=== PATIENT | male | born 1965 | race Caucasian/White ===

== ENCOUNTER → 2017-07-03 14:11 | Outpatient (CLI) | payer OTHER, SELFPAY ==
--- NOTE | 2017-07-03 14:18 | CA_ITS ---
PROCEDURE: 2-D M-mode and color Doppler study INDICATIONS FOR THE TEST: Chest pain COPD Heart Murmur Tobacco Smoking Palpitations Fatigue Syncope Edema Hypertension+Diabetes Mellitus Rheumatic Fever SOB SUAREZ Obesity Hyperlipidemia+ Family History HD Additional History PATIENT INFORMATION HEIGHT: 70 WEIGHT: 255 GENDER: Male B/P: 137/66 2-D/M-MODE INTERPRETATION: 2-D MEASUREMENTS OBSERVED VALUES IN CMS Right Ventricular Dimension (RVDd) 2.3 Interventricular Septum (Thickness)(IVsd) 1.1 Left Ventricular Internal Dimensions(LVIDd) 5.2 Left Ventricular Posterior Wall (Thickness)(LVPWd) 1.1 Aortic Root 3.0 Aortic Cusp Separation 2.3 Left Atrial Dimensions (LAD) 4.2 2D 1. Left atrium is mildly enlarged, left ventricle is normal size, mild concentric left ventricular hypertrophy, visually estimated ejection fraction 55% with no obvious regional wall motion abnormality. 2. The right atrium and right ventricle are normal size and contractility. 3. The aortic valve is minimally thickened and fibrosed. 4. The mitral and tricuspid valve leaflets are minimally thickened. 5. The pulmonic valve is poorly visualized. 6. No significant pericardial effusion noted. DOPPLER INTERROGATION: Doppler interrogation of the aortic, mitral and tricuspid valvular presence of mild mitral and tricuspid regurgitation, tricuspid and jet velocity insufficient for calculation of the right ventricular systolic pressure, grade 1 diastolic dysfunction seen without tissue Doppler evidence of raised left atrial pressure. CONCLUSION: 1. Mildly enlarged left atrium, normal left ventricular size, mild concentric left ventricular hypertrophy, visually estimated ejection fraction 55% with no obvious regional wall motion abnormality, grade 1 diastolic dysfunction seen without tissue Doppler evidence of raised left atrial pressure. 2. Mild mitral and tricuspid regurgitation 3. No significant pericardial effusion noted.
--- NOTE | 2017-07-03 14:18 | CI_ITS ---
Cerebrovascular Exam Indications: 785.9 Bruit. IMPRESSIONS 1. The bilateral internal carotid arteries reveal no evidence of plaque or stenosis. 2. The bilateral common and external carotid arteries reveal no significant stenosis. 3. The bilateral vertebral arteries are patent with normal antegrade flow. History: Risk factors: Hypertension. Carotid duplex study. Complete study and Doppler flow study including spectral analysis, color and baugh scale imaging. Height: Height: 177.8cm. Height: 70in. Weight: Weight: 115.7kg. Weight: 254.5lb. Body mass index: BMI: 36.6kg/m^2. Body surface area: BSA: 2.43m^2. Location: Vascular laboratory. Patient status: Outpatient. Tables: Arterial flow: + +--------+--------+ Location V sys V ed + +--------+--------+ Right CCA - proximal 92.7cm/s 14.1cm/s + +--------+--------+ Right CCA - distal 52.6cm/s 13.4cm/s + +--------+--------+ Right ECA 115cm/s -------- + +--------+--------+ Right ICA - proximal 47.9cm/s 19.6cm/s + +--------+--------+ Right ICA - mid 54.2cm/s 18.9cm/s + +--------+--------+ Right ICA - distal 50.3cm/s 23.6cm/s + +--------+--------+ Right vertebral 36.9cm/s -------- + +--------+--------+ Left CCA - proximal 90.4cm/s 18.1cm/s + +--------+--------+ Left CCA - distal 75.4cm/s 26.7cm/s + +--------+--------+ Left ECA 130cm/s -------- + +--------+--------+ Left ICA - proximal 52.6cm/s 16.5cm/s + +--------+--------+ Left ICA - mid 67.6cm/s 29.9cm/s + +--------+--------+ Left ICA - distal 71.5cm/s 30.6cm/s + +--------+--------+ Left vertebral 27.5cm/s -------- + +--------+--------+ Velocity ratios: + + + + + + Right, V sys Right, V ed Left, V sys Left, V ed + + + + + + Max ICA/dist CCA 1.03 1.76 0.95 1.15 + + + + + + (Report amended ) Electronically signed by: Pito Ramos [id number]
== END ==
PROVIDERS: PCP Family Medicine; Visit Provider Family Medicine
DX: I49.8 Other specified cardiac arrhythmias (principal); R09.89 Other specified symptoms and signs involving the circulatory and respiratory systems
CPT/HCPCS: 93306; 93880

== ENCOUNTER → 2017-07-18 08:33 | Outpatient (CLI) | payer OTHER, SELFPAY ==
[2017-07-18 09:05] LABS: Hemoglobin A1C 5.9 % (0.0-7.0)
[2017-07-18 10:35] LABS: Chol/HDL Ratio 4.9 (1-3.5); Cholesterol 157 mg/dL (140-200); HDL Cholesterol 32 mg/dL (27-67); LDL Cholesterol 99 mg/dL (0-130); Triglycerides 128 mg/dL (30-200); VLDL Cholesterol 26 mg/dL (0-40)
== END ==
PROVIDERS: Visit Provider Family Medicine
DX: E11.9 Type 2 diabetes mellitus without complications (principal); E78.2 Mixed hyperlipidemia
CPT/HCPCS: 36415; 80061; 83036

== ENCOUNTER → 2018-10-21 11:20 | Outpatient (CLI) | payer OTHER, SELFPAY ==
--- NOTE | 2018-10-21 11:29 | XR_ITS ---
EXAM: XR lumbar spine min 4V HISTORY: ITS.REASON: BACK STRAIN low-back pain ORDERING PHYSICIAN: NONA Davies PATIENT AGE: 53 years COMPARISON: 01/11/2008 FINDINGS: Multilevel degenerative disc disease is present from T12 S1. There is chronic wedging of L1. Endplate osteophytes are noted at multiple levels. The degenerative disc disease is worse at L3-L4 and L5-S1 compared to the remaining levels and has progressed when compared to the previous exam. Bilateral pars defect is present at L5 with mild spondylolisthesis of L5 of 5 mm. Facet arthritic changes are present at L4-L5 and S1. There is generalized vascular calcification. IMPRESSION: Multilevel degenerative disc disease with facet arthritic changes. The findings are slightly worse than when compared to the previous study Chronic wedging of L1 unchanged
== END ==
PROVIDERS: PCP Physician Assistant; Visit Provider Physician Assistant
DX: S39.012A Strain of muscle, fascia and tendon of lower back, initial encounter (principal)
CPT/HCPCS: 72110

== ENCOUNTER → 2018-10-27 14:12 | Outpatient (CLI) | payer OTHER, SELFPAY ==
--- NOTE | 2018-10-27 14:14 | MR_ITS ---
MR lumbar spine wo con, MR 3-d myelogram/MRCP HISTORY: Low back pain, LT sciatica pain when reaching or twisting. Shooting pain down back of leg. Symptoms [id number]. ITS.REASON: BACK STRAIN ORDERING PHYSICIAN: NONA Davies PATIENT AGE: 53 years Comparison: 10/21/2018 TECHNIQUE: Standard multiplanar multiecho sequences are performed without contrast. 3-D MIP and myelographic images are also rendered and reviewed FINDINGS: Normal alignment. The spinal cord ends at the T12-L1 level. There is straightening of the lumbar lordosis which could be due to patient positioning or muscle spasm. T11-T12: Mild degenerative disc disease. T12-L1: Degenerative disc disease. There is mild loss of height anteriorly of L1 which appears chronic. L1-L2: Unremarkable. L2-L3: Degenerative disc disease with mild bulging disc along with facet and ligamentum flavum hypertrophy. This is causing mild left lateral recess and foraminal narrowing and minimal right foraminal narrowing. L3-L4: Degenerative disc disease with bulging disc along with facet and ligamentum flavum hypertrophy with bilateral lateral recess narrowing and mild to moderate bilateral foraminal narrowing slightly greater on the right compared to the left. Type II endplate changes. There is transverse narrowing of the canal at this level at 10 mm. There is a Schmorl's node along the inferior endplate of L3 L4-L5: Mild concentric bulging disc with facet and ligamentum hypertrophy with mild bilateral lateral recess and foraminal narrowing. A Schmorl's node is present along the superior endplate of L5. L5-S1: Degenerative disc disease with 5 mm anterolisthesis of L5 with bulging disc with facet and ligamentum flavum hypertrophic change. There is moderate to severe bilateral foraminal narrowing greater on the right compared to the left. Disc herniation is evident. No acute fracture. IMPRESSION: 1. There is multilevel lumbar spondylosis with degenerative disc disease along with facet and ligamentum hypertrophy with lateral recess and foraminal narrowing and bulging discs. PLEASE SEE ABOVE FOR DETAILED DESCRIPTION AT EACH LEVEL. 2. Transverse narrowing of the canal at L3-L4. 3. No disc herniation or acute fracture
== END ==
PROVIDERS: PCP Physician Assistant; Visit Provider Physician Assistant
DX: S39.012A Strain of muscle, fascia and tendon of lower back, initial encounter (principal)
CPT/HCPCS: 72148; 76376

== ENCOUNTER → 2019-09-10 08:18 | Outpatient (CLI) | payer BC, SELFPAY ==
--- NOTE | 2019-09-10 08:29 | XR_ITS ---
PROCEDURE: XR ANKLE LT MIN 3V CLINICAL INDICATION: PAIN Foot and ankle pain COMPARISON: XR FOOT LT MIN 3V from 09/10/2019 FINDINGS: Minimal hypertrophic changes are present at the tip of the lateral malleolus. The ankle joint space is well preserved. There is minimal spurring of the distal tibia. The talar dome has an unremarkable appearance and the ankle mortise is preserved. There is a prominent posterior talar process/os trigonum which may result in impingement symptomatology. There is mild sclerosis of the subtalar joint and minimal hypertrophic change of the talonavicular joint. Minimal osteoarthritic change also noted at the 1st metatarsophalangeal joint. No acute fracture or dislocation. Degenerative changes also noted at the calcaneocuboid joint IMPRESSION: 1. Degenerative changes as detailed above. 2. Prominent posterior talar process which could result in impingement symptomatology. 3. No acute fracture Dictated by: Pito Ramos MD 09/10/2019 09:05 Electronically signed by Pito Ramos MD in [place] 09/10/2019 09:05
[2019-09-10 10:28] LABS: Chloride 105 mmol/L (98-107); Potassium 4.3 mmoL/L (3.5-5.1); Sodium 136 mmol/L (136-145)
[2019-09-10 10:30] LABS: Blood Urea Nitrogen 13 mg/dl (9-20); Estimated Glomerular Filt Rate 100 ml/min (>60); GFR (African American) 121 ML/MIN (>60)
[2019-09-10 10:31] LABS: Alanine Aminotransferase 38 U/L (12-78); Albumin Level 3.5 g/dl (3.5-5.0); Albumin/Globulin Ratio 1.4 (1.1-1.8); Alkaline Phosphatase 86 U/L (38-126); Anion Gap 7.3 mEq/L (5-15); Aspartate Amino Transferase 26 U/L (17-59); Bilirubin,Total 0.6 mg/dl (0.2-1.3); Carbon Dioxide 28 mmol/L (22.0-30.0); Cholesterol 142 mg/dl (140-200); Globulin 2.5 g/dL (1.3-3.2); Triglycerides 114 mg/dl (30-150); VLDL Cholesterol 23 mg/dL (0-40)
[2019-09-10 10:32] LABS: Calcium 9.4 mg/dl (8.4-10.2); Chol/HDL Ratio 3.7 (1-3.5); Glucose 135 mg/dl (74-100); HDL Cholesterol 38 mg/dl (40-60)
[2019-09-10 10:42] LABS: Direct LDL Cholesterol 111.92 mg/dL (100-129)
[2019-09-10 11:02] LABS: Prostate Specific Ag Screen 1.6 ng/ml (0.0-4.0)
[2019-09-10 12:20] LABS: Hemoglobin A1C 6.2 % (4.0-6.0)
== END ==
PROVIDERS: Visit Provider Physician Assistant
DX: E11.9 Type 2 diabetes mellitus without complications (principal); N40.0 Benign prostatic hyperplasia without lower urinary tract symptoms; I10 Essential (primary) hypertension; E78.5 Hyperlipidemia, unspecified
CPT/HCPCS: 36415; 73610; 73630; 80053; 80061; 83036; G0103

== ENCOUNTER 2019-11-14 17:30 | Outpatient (RCR) | payer BC, SELFPAY ==
--- NOTE | 2019-10-31 16:27 | HMH.PTOPEV ---
PT Outpatient Evaluation Rehab PT Outpatient Evaluation Start: 10/31/19 16:00 Freq: Status: Active Protocol: Document 10/31/19 16:01 GABRIELADEWAYNE (Rec: 10/31/19 16:27 HARISHLUCIO [id number]) Electronically Signed By Isac Flores PT 10/31/19 16:01 Outpatient Therapy Subjective History Subjective History This is the initial Physical Therapy evaluation for Andrez Bailey. Pt reports L ankle foot pain began ~ in June w/ an insidious onset. Pt reports pain was minimal but unrelenting. Pt states August/September pain began to increase to point of affecting gait and ambulation. Pt reports this caused LBP and BLE pain. Pt states he had steroid injection which has significantly decreased pain. Chief Complaint Pain Symptom Type Ache,Throb,Dull Symptoms Relieved By Prescription Meds Prior Functional Limitations None Current Functional Limitations Recreation Activity,Walking, Stairs Symptom Description Intermittent Level of pain today (0-10) 1 Pain scale - at its best (0-10) 0 Pain scale - at its worst (0-10) 8 Ankle/Foot Eval Gait Observation General Gait Pattern Observation No Deviations/Normal Assistive Device Ambulation Assistive Device None Palpation Tenderness left Ankle/Foot Palpation Findings Tenderness Ankle/Foot Palpation Overall Comment Tender along post tib tendon ROM Ankle/Foot Dorsiflexion w/Knee Extended 0 Active Range Motion (degrees) Ankle/Foot Plantar Flexion Active Range 60 of Motion (degrees) Ankle/Foot Eversion Active Range of 14 Motion (degrees) Ankle/Foot Inversion Active Range of 30 Motion (degrees) Special Tests Ankle Anterior Drawer Test Negative Left Ankle Eversion Test Positive Left Ankle Inversion (supination) Test Negative Left Outpatient Therapy Assessment Impairments Problems/Impairmments Palpation Tenderness,Impaired Range of Motion,Impaired Walking,Impaired Standing, Impaired Driving,Impaired Stair Climbing,Impaired Incline Stepping,Impaired Recreational Activities, Impaired Work Activities, Subjective C/O Pain,Impaired Self Care/Self Managem
== END 2019-11-14 18:24 | disposition home or self-care (01) ==
LOC: PT 17:30
PROVIDERS: PCP Physician Assistant; Visit Provider Podiatrist
DX: M25.872 Other specified joint disorders, left ankle and foot; M76.62 Achilles tendinitis, left leg
CPT/HCPCS: 97010; 97035; 97110; 97163

== ENCOUNTER → 2020-06-12 18:58 | Outpatient (CLI) | payer BC, SELFPAY ==
[2020-06-12 19:47] LABS: Microscopic, Urine URINE MICROSCOPIC (MICROSCOPIC)
[2020-06-12 20:03] LABS: Appearance,Urine CLEAR (Clear); Bilirubin,Urine Negative (Negative); Blood, Urine Negative (Negative); Color,Urine YELLOW (Yellow); Glucose,Urine (UA) Negative (Negative); Ketones,Urine Negative (Negative); Leukocyte Esterase,Urine Negative (Negative); Nitrate,Urine Negative (Negative); Protein,Urine Negative (Negative); Specific Gravity, Urine >= 1.030 (1.005-1.030); Urobilinogen,Urine 0.2 EU/dl (0.2)
[2020-06-12 20:58] LABS: Bacteria,Urine 1+ /lpf; WBC,Urine Occasional #/hpf (0-3)
== END ==
PROVIDERS: PCP Physician Assistant; Visit Provider Family Medicine
DX: N39.0 Urinary tract infection, site not specified (principal)
CPT/HCPCS: 81001; 87086; 87186

== ENCOUNTER 2020-08-10 09:09 | Emergency (ER) | payer BC, SELFPAY ==
[2020-08-10 09:27] VITALS: BP 141/78; PULSE 67; RESP 14; TEMP 37.1; O2SAT 97; BMI 35.5
--- NOTE | 2020-08-10 10:11 | HMH.EDUTC ---
[facility] [place] Disposition Clinical Impression: Corneal abrasion Qualifiers: Encounter type: initial encounter Laterality: left Qualified Code(s): S05.02XA - Injury of conjunctiva and corneal abrasion without foreign body, left eye, initial encounter Disposition: Home, Self-Care Condition on Discharge: Good Instructions: DI for Corneal Abrasion, Corneal Abrasion Additional Instructions: Use the eye drops as directed. Follow up with your primary care doctor. If you continue to have symptoms, please follow up with Dr. Neely. GO TO THE ER FOR ANY WORSENING SYMPTOMS OR CONCERNS Prescriptions: Ofloxacin [Ocuflox 0.3% OPHTH drops 5mL] 1 drp EYE-LEFT Q2H 7 Days #1 bottle Transmission Status: Received by [id number] Referrals: Deepa Soto MD [Primary Care Provider] - Time of Disposition: 10:17 Medical Decision Making - Medical Records Medical records reviewed: No: I reviewed the patient's medical records. - Mitchel Inquiry Pt receiving controlled substance: No Vital Signs: 08/10/20 09:27 08/10/20 10:32 Temperature 98.7 F 98.6 F Temperature Source Oral Pulse Rate 67 Pulse Rate [Right] 67 Respiratory Rate 14 16 Blood Pressure 132/75 Blood Pressure [Right Arm] 141/78 H Blood Pressure Mean [Right Arm] 99 02 Sat by Pulse Oximetry 97 Orders (Tests/Meds): ED MEDICATIONS Discontinued Medications Generic Name Dose Route Start Last Admin Trade Name Freq PRN Reason Stop Dose Admin Tetracaine HCl 0.5 ml 08/10/20 10:28 08/10/20 10:31 Tetracaine 0.5% Opth Melissa 15ml OP 08/10/20 10:29 2 drops ONCE ONE Administration [facility] [place] HPI - General Stated complaint: foreign object in LT eye Time Seen by Provider: 08/10/20 09:30 Mode of Arrival: Ambulatory Source of Information: Patient Limitations: No Limitations Description of Symptoms (Recalled from Triage Doc. by RN): pt woke up thu morning and noticed he had something in his L eye. he thinks its a piece of rust of dirt is in it. its not painful he can just feel something in there. HEENT Symptoms (Recalled from RN notes): Yes (pt feels like there is something in his L eye) Resp Symptoms (Recalled from RN notes): No Skin Symptoms (Recalled from RN notes): No MS Symptoms (Recalled from RN notes): No Functional Status (Recalled from RN notes): na - History of Present Illness Provider Complaint: He states that for the past 2 days he has had a foreign body sensation in his left eye. 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 He thinks that he has something in the eye. He denies any injury. He states that his vision is normal in the eye, but it is watering more than usual . - Related Data Home Medications Medication Instructions Recorded Confirmed indomethacin 50 mg capsule 50 mg PO BID 06/08/18 10/17/19 lisinopril 10 1 tab PO tab 09/22/19 10/17/19 mg-hydrochlorothiazide 12.5 mg tablet rosuvastatin 20 mg tablet 20 mg PO tab 09/22/19 10/17/19 Previous Rx's Medication Instructions Recorded meloxicam 7.5 mg tablet 7.5 mg PO DAILY #30 tab 09/22/19 Ofloxacin [Ocuflox 0.3% OPHTH 1 drp EYE-LEFT Q2H 7 Days #1 bottle 08/10/20 drops 5mL] Allergies Allergy/AdvReac Type Severity Reaction Status Date / Time Sulfa (Sulfonamide Allergy Verified 08/10/20 09:32 Antibiotics) From Promethazine HCl Allergy Unknown Uncoded 06/08/18 11:33 - Worker's Comp Is this a Worker's Comp case?: No [facility] History - Hepatitis A Screen Drug use history?: No High risk sexual behaviors?: No History of sexually transmitted infection?: No Currently employed?: No Childcare worker?: No Do you have indoor plumbing?: Yes Do you have electricity?: Yes Attestation statement:: This patient has been screened for Hepatitis A risk factors. I have reviewed the patient's past medical history: Yes Medical History: Reports:: Hyperlipidemia, Hypertension Other Medical History: Reports: Arthritis Other S
[2020-08-10 10:32] VITALS: BP 132/75; PULSE 67; RESP 16; TEMP 37
== END 2020-08-10 10:32 | disposition home or self-care (01) ==
PROVIDERS: Emergency Provider Nurse Practitioner Family; PCP Family Medicine
DX: S05.02XA Injury of conjunctiva and corneal abrasion without foreign body, left eye, initial encounter (principal); W22.8XXA Striking against or struck by other objects, initial encounter; Y92.79 Other farm location as the place of occurrence of the external cause; I10 Essential (primary) hypertension; E78.5 Hyperlipidemia, unspecified
CPT/HCPCS: 99202; G0463

== ENCOUNTER → 2021-04-10 19:46 | Outpatient (CLI) | payer OTHER, SELFPAY | PROVIDERS: Visit Provider Nurse Practitioner Family | DX: U07.1 COVID-19 (principal) | CPT/HCPCS: C9803; U0003; U0005 ==

== ENCOUNTER 2021-11-10 17:48 | Emergency (ER) | payer BC, SELFPAY ==
--- NOTE | 2021-11-10 18:07 | HMH.EDUTC ---
[facility] [place] Disposition Clinical Impression: Vertigo Otitis media Qualifiers: Otitis media type: suppurative Chronicity: acute Laterality: bilateral Recurrence: non-recurrent Spontaneous tympanic membrane rupture: without spontaneous rupture Qualified Code(s): H66.003 - Acute suppurative otitis media without spontaneous rupture of ear drum, bilateral Disposition: Home, Self-Care Condition on Discharge: Good Instructions: Middle Ear Infection Additional Instructions: Drink plenty of fluids. Take tylenol or ibuprofen for pain or fever. Take the medications as directed. Follow up with your regular doctor. GO TO THE ER FOR ANY WORSENING SYMPTOMS Quarantine until you know the results of your covid-19 test. Notify your school or workplace of your results and follow their instructions regarding return to work/school. Don't start the oral steroids until tomorrow, since you had the shot here today. Prescriptions: Amoxicillin/Potassium Clav [Amox-Clav 875-125 mg Tablet] 1 tab PO BID #20 tab Transmission Status: Received by [place] [id number] methylPREDNISolone [Medrol] 4 mg PO DIRECTED 6 Days #21 packet Transmission Status: Received by [place] [id number] Referrals: Deepa Soto MD [Primary Care Provider] - Forms: Work/School Release Time of Disposition: 18:54 Medical Decision Making - Medical Records Medical records reviewed: No: I reviewed the patient's medical records. - Mitchel Inquiry Pt receiving controlled substance: No Vital Signs: 11/10/21 18:12 Temperature 98.9 F Temperature Source Oral Pulse Rate [Left] 60 Respiratory Rate 16 Blood Pressure [Right Arm] 136/88 Blood Pressure Mean [Right Arm] 104 02 Sat by Pulse Oximetry 98 Orders (Tests/Meds): ED MEDICATIONS Discontinued Medications Generic Name Dose Route Start Last Admin Trade Name Freq PRN Reason Stop Dose Admin Ceftriaxone Sodium 1 gm 11/10/21 18:49 11/10/21 19:01 Ceftriaxone 1gm Vial IM 11/10/21 18:50 1 gm ONCE ONE Administration Lidocaine HCl 0 ml 11/10/21 18:49 11/10/21 19:02 Lidocaine 1% 5ml Pf Vial IM 11/10/21 18:50 2 ml ONCE ONE Administration Methylprednisolone Sodium Succinate 125 mg 11/10/21 18:49 11/10/21 19:02 Methylprednisolone Sod Succ 125mg Vial IM 11/10/21 18:50 125 mg ONCE ONE Administration ORDERS Category Date Time Status Covid-19 Nasal PCR ([facility]) Routine Lab 11/10/21 18:02 Received [facility] [place] HPI - General Stated complaint: congestion, DOSS and ear ache and dizzy Time Seen by Provider: 11/10/21 18:07 - History of Present Illness Provider Complaint: He has had bilateral ear pain for the past week. He started having dizziness with certain turns of his head today. - Related Data Home Medications Medication Instructions Recorded Confirmed indomethacin 50 mg capsule 50 mg PO BID 06/08/18 04/10/21 lisinopril 10 1 tab PO tab 09/22/19 04/10/21 mg-hydrochlorothiazide 12.5 mg tablet rosuvastatin 20 mg tablet 20 mg PO tab 09/22/19 04/10/21 Previous Rx's Medication Instructions Recorded amoxicillin 500 mg capsule 500 mg PO Q12H 10 Days #20 cap 04/10/21 Amoxicillin/Potassium Clav 1 tab PO BID #20 tab 11/10/21 [Amox-Clav 875-125 mg Tablet] methylPREDNISolone [Medrol] 4 mg PO DIRECTED 6 Days #21 11/10/21 packet Allergies Allergy/AdvReac Type Severity Reaction Status Date / Time Sulfa (Sulfonamide Allergy Verified 11/10/21 18:16 Antibiotics) From Promethazine HCl Allergy Unknown Uncoded 04/10/21 12:22 [facility] History - Hepatitis A Screen Attestation statement:: This patient has been screened for Hepatitis A risk factors. I have reviewed the patient's past medical history: Yes Medical History: Reports:: Hyperlipidemia, Hypertension Other Medical History: Reports: Arthritis Other Surgeries: Yes: No Previous Surgery, Colonoscopy Amputation: No Fractures: No - Social History Smoking Status: Ne
[2021-11-10 18:12] VITALS: BP 136/88; PULSE 60; RESP 16; TEMP 37.2; O2SAT 98; BMI 34.8
[2021-11-10 19:11] VITALS: BP 136/88; PULSE 60; RESP 16; TEMP 37.2
== END 2021-11-10 19:11 | disposition home or self-care (01) ==
PROVIDERS: Emergency Provider Nurse Practitioner Family; PCP Family Medicine
DX: H66.003 Acute suppurative otitis media without spontaneous rupture of ear drum, bilateral
CPT/HCPCS: 96372; 99212; C9803; G0463; J0696; U0003; U0005

== ENCOUNTER 2024-02-13 11:39 | Emergency (ER) | payer BC, SELFPAY ==
[2024-02-13 13:25] VITALS: BP 136/72; PULSE 71; RESP 20; TEMP 37.1; O2SAT 98; BMI 35.2
--- NOTE | 2024-02-13 14:36 | EXP.UTC ---
Discharge Plan Disposition Patient Disposition: Home, Self-Care Condition: Good Prescriptions Prescriptions: New benzonatate 100 mg capsule 100 mg PO TID PRN (Reason: cough) Qty: 30 0RF triamcinolone acetonide 0.5 % cream 1 applic topical TID Qty: 30 0RF No Action indomethacin 50 mg capsule 50 mg PO BID lisinopril-hydrochlorothiazide 10-12.5 mg tablet 1 tab PO Patient Comments: TAKE 1 TABLET BY MOUTH ONCE DAILY rosuvastatin 20 mg tablet 20 mg PO Patient Comments: TAKE 1 TABLET BY MOUTH ONCE DAILY AT BEDTIME amoxicillin 500 mg capsule 500 mg PO Q12H 10 Days Qty: 20 0RF methylprednisolone 4 MG tablets,dose pack 4 mg PO DIRECTED 6 Days Qty: 21 0RF amoxicillin-pot clavulanate 1 EACH tablet 1 tab PO BID Qty: 20 0RF Referrals Follow up/Referrals: Deepa Soto MD [Primary Care Provider] - See instructions Activity Restrictions/Add. Instructions Additional Instructions/Restrictions: Take/use medication as prescribed. If symptoms persist or worsen, return to clinic/pcp. If you become short of air, return to ER. Clinical Impressions Clinical Impression: Contact dermatitis and eczema due to plant Upper respiratory tract infection Qualifiers: URI type: unspecified viral URI Qualified Code(s): J06.9 - Acute upper respiratory infection, unspecified Instructions Patient Instructions: DI for Viral Upper Respiratory Infection -- Adult, DI for Poison Bess Allergy, Poisonous Plants: [place], [place], and [place]: Beware the Oils Print Language Print Language: Hungarian Discharge ED Provider: Leydi Kapoor [facility] [place] HPI General Stated complaint: cough, chest congestion, poison bess rash Mode of Arrival: Ambulatory Source of Information: Patient Time Seen by Provider: 02/13/24 14:09 Description of Symptoms (Recalled from Triage Doc. by RN): POSION BESS SPREADING EVEN AFTER STEROID PK AND SINUS PRESSURE ISSUES HEENT Symptoms (Recalled from RN notes): No Resp Symptoms (Recalled from RN notes): Yes Skin Symptoms (Recalled from RN notes): Yes MS Symptoms (Recalled from RN notes): No Functional Status (Recalled from RN notes): WNL Related Data Home Medications ?Medication ?Instructions ?Recorded ?Confirmed indomethacin 50 mg capsule 50 mg PO BID 06/08/18 04/10/21 lisinopril 10 1 tab PO 09/22/19 04/10/21 mg-hydrochlorothiazide 12.5 mg tablet rosuvastatin 20 mg tablet 20 mg PO 09/22/19 04/10/21 Previous Rx's ?Medication ?Instructions ?Recorded amoxicillin 500 mg capsule 500 mg PO Q12H sinusitis 10 days 04/10/21 #20 caps amoxicillin 875 mg-potassium 1 tab PO BID #20 tabs 11/10/21 clavulanate 125 mg tablet methylprednisolone 4 mg tablets in 4 mg PO DIRECTED 6 days #21 11/10/21 a dose pack packets benzonatate 100 mg capsule 100 mg PO TID PRN cough #30 caps 02/13/24 triamcinolone acetonide 0.5 % 1 applic topical TID #30 grams 02/13/24 topical cream Allergies Allergy/AdvReac Type Severity Reaction Status Date / Time Sulfa (Sulfonamide Allergy Verified 11/10/21 18:16 Antibiotics) From Promethazine HCl Allergy Unknown Uncoded 04/10/21 12:22 Worker's Comp Is this a Worker's Comp case?: No [facility] Disclaimer: The information contained in this section may have been updated after the patient was seen, as this information can be updated by other users. Social History Smoking Status: Never smoker alcohol intake: never substance use type: denies use current occupational status: employed Travel in the last 8 weeks: None household members: family housing: house ROS Obtained: Yes All systems reviewed & no additional complaints except as documented Constitutional Constitutional: Reports fever(s), Reports headache(s), Reports malaise and Reports night sweats Eyes Eyes: Reports system reviewed and no additional complaints, except as documented ENT Ears, Nose, Mouth, and Throat: Reports system reviewed and no additional complaints, except as documented, Reports headache(s), Reports nasal congestion and Reports nasal discharge Cardiovascular Cardiovascular: Reports system reviewed and no additional complaints, except as documented Respiratory Respiratory: Reports system reviewed and no additional complaints, except as documented and Reports non-productive cough Gastrointestinal Gastrointestingal: Reports system reviewed and no additional complaints, except as documented Genitourinary Male Genitourinary: Reports system reviewed and no additional complaints, except as documented Musculoskeletal Musculoskeletal: Reports system reviewed and no additional complaints, except as documented Integumentary/Breasts Skin/Breast: Reports system reviewed and no additional complaints, except as documented Neurologic Neurologic: Reports system reviewed and no additional complaints, except as documented and Reports headache(s) Endocrine Endocrine: Reports system reviewed and no additional complaints, except as documented Hematologic/Lymphatic Henatologic/Lymphatic: Reports system reviewed and no additional complaints, except as documented Allergic/Immunologic Allergic/Immunologic: Reports system reviewed and no additional complaints, except as documented Physical Exam General General appearance: alert and in no apparent distress Head Head exam: atraumatic and normocephalic Eye Eye exam: Present normal appearance ENT ENT exam: Present mucous membranes moist Expanded ENT Exam External ear exam: Present normal external inspection Nasal speculum exam: Bilateral: other (clear drainage) Mouth exam: Present normal external inspection Teeth exam: Present normal inspection Throat exam: Present normal inspection Neck Neck exam: Present normal inspection Chest Chest inspection: Present normal inspection and symmetric chest wall rise Respiratory Respiratory exam: Present normal lung sounds bilaterally Cardiovascular Cardiovascular exam: Present regular rate and normal rhythm Abdominal Exam Abdominal exam: Present soft and normal bowel sounds Extremities Exam Extremities exam: Present normal inspection Back Exam Back exam: Present normal inspection Neurological Exam Neurological exam: Present alert and oriented X3 Psychiatric Psychiatric exam: Present normal affect and normal mood Skin Skin exam: Present warm, dry and intact Lymphatic Lymphatic Findings: no adenopathy Medical Decision Making Medical Records Screening: Per USPSTF and CDC recommendations, given the prevalence of disease in our region, it is our hospital?s policy to screen for HIV and viral Hepatitis for all patients aged 18 and over and those with ongoing risk factors. Mitchel Inquiry Pt receiving controlled substance: No Mitchel was queried for this patient: No Vital Signs: 02/13/24 13:25 Temperature 98.7 F Temperature Source Oral Pulse Rate [Left Radial] 71 Respiratory Rate 20 Blood Pressure [Left Arm] 136/72 Blood Pressure Mean [Left Arm] 93 02 Sat by Pulse Oximetry 98
[2024-02-13 14:43] VITALS: BP 136/72; PULSE 71; RESP 20; TEMP 37.1
== END 2024-02-13 14:47 | disposition home or self-care (01) ==
PROVIDERS: Emergency Provider Nurse Practitioner Family; PCP Family Medicine
DX: L23.7 Allergic contact dermatitis due to plants, except food (principal); J06.9 Acute upper respiratory infection, unspecified
CPT/HCPCS: 99213; G0381